=== PATIENT | female | born 1970 | race Caucasian/White ===

== ENCOUNTER → 2018-06-11 | Outpatient (CLI) | payer BC ==
[~2018-06-11] MED LIST: ARMOUR THYROID60 M1 PO; FRUIT & VEGETA1 EACH PO; METFORMIN HCL500 MG PO; NORCO 5-325 TA1 EAC1 PO; TAMSULOSIN HCL0.4 MG PO; TRAMADOL 50 MG50 MG PO; ZOFRAN ODT4 MG PO
== END ==
LOC: M.ULTRA 14:30
DX: E04.2 Nontoxic multinodular goiter (principal)

== ENCOUNTER → 2018-06-29 | Outpatient (CLI) | payer BC | LOC: M.RAD 10:09 | DX: Z12.31 Encounter for screening mammogram for malignant neoplasm of breast (principal); E03.9 Hypothyroidism, unspecified ==

== ENCOUNTER → 2018-08-26 | Outpatient (CLI) | payer BC | LOC: M.ULTRA 07:11 | DX: N28.1 Cyst of kidney, acquired (principal); N20.0 Calculus of kidney ==